=== PATIENT | male | born 1970 | race Caucasian/White ===

== ENCOUNTER 2022-10-19 13:15 | Inpatient (IN) | payer OTHER ==
[2022-10-19 15:41] VITALS: BMI 23.6
[2022-10-19] MEDS ORDERED: MAGNESIUM HYDROX 2400MG/30ML ORAL SUSPENSION 30 ML CUP PO PRN (19:00)
[2022-10-19] MEDS ORDERED: NALOXONE HCL (KLOXXADO) 8 MG SPRAY NS PRN (19:00)
[2022-10-19] MEDS ORDERED: hydrOXYzine PAMOATE 25 MG CAPSULE (FP) PO PRN (19:00)
[2022-10-19] MEDS ORDERED: POLYETHYLENE GLYCOL (HEALTHYLAX) 3350 17 GM PACKET PO PRN (19:00)
[2022-10-19] MEDS ORDERED: NALOXONE HCL 0.4 MG/ML VIAL IM PRN (19:00)
[2022-10-19] MEDS ORDERED: IBUPROFEN 400 MG TABLET (FP) PO PRN (19:00)
[2022-10-19] MEDS ORDERED: BENZOCAINE/MENTHOL (CHLORASEPTIC ) LOZENGE MM PRN (19:00)
[2022-10-19] MEDS ORDERED: LOPERAMIDE HCL 2 MG CAPSULE PO PRN (19:00)
[2022-10-19] MEDS ORDERED: NICOTINE POLACRILEX 2 MG GUM BUC PRN (19:00)
[2022-10-19] MEDS ORDERED: IBUPROFEN 600 MG TABLET (FP) PO PRN (19:00)
[2022-10-19] MEDS ORDERED: BENZONATATE 200 MG CAPSULE PO PRN (19:00)
[2022-10-19] MEDS ORDERED: AMMONIUM LACTATE 12% LOTION 225 GM BOTTLE TP PRN (19:00)
[2022-10-19] MEDS ORDERED: MAG HYDROX/AL HYDROX/SIMETH 30 ML UNIT-DOSE CUP PO PRN (19:00)
[2022-10-19] MEDS ORDERED: ACETAMINOPHEN 325 MG TABLET (FP) PO PRN (19:00)
[2022-10-19] MEDS ORDERED: guaiFENesin 600 MG TABLET.ER (FP) PO PRN (19:00)
[2022-10-19] MEDS ORDERED: TUBERCULIN PPD 5 TU/0.1ML SYRINGE (IN PATIENT USE ONLY) ID ONE (20:00)
[2022-10-19] MEDS: THIAMINE HCL 100 MG TABLET (FP) PO SCH (21:53)
[2022-10-19] MEDS: MELATONIN 5 MG TABLETS PO SCH (21:53)
[2022-10-19] MEDS ORDERED: QUEtiapine FUMARATE 100 MG TABLET (FP) PO ONE (22:00)
[2022-10-19] MEDS: LIDOCAINE PATCH REMOVAL MC SCH (22:03)
[2022-10-19 23:01] LABS: EPI CELLS 11 /uL (0-25.1); HYALINE CASTS 3 /uL (0-3.1); URINE APPEARANCE CLEAR; URINE BACTERIA 32 /uL (0-1359); URINE BILIRUBIN NEGATIVE (NEGATIVE); URINE COLOR DK YELLOW; URINE GLUCOSE (UA) NEGATIVE (NEGATIVE); URINE KETONE NEGATIVE (NEGATIVE); URINE LEUK ESTERASE NEGATIVE (NEGATIVE); URINE NITRITE NEGATIVE (NEGATIVE); URINE PROTEIN 1+ (NEGATIVE); URINE RBC 9 /uL (0-23.9); URINE WBC 38 /uL (0-25.8)
[2022-10-20] MEDS ORDERED: methaDONE HCL 10 MG TABLET PO ONE (10:00)
[2022-10-20] MEDS: PRENATAL VITAMINS W/ FOLIC ACID TABLET (FP) PO SCH (10:18)
[2022-10-20] MEDS ORDERED: methaDONE 40 MG, methaDONE 20 MG PO ONE (10:22)
[2022-10-20] MEDS: LIDOCAINE 5% TOPICAL PATCH TP SCH (10:22)
[2022-10-20 12:55] LABS: POTASSIUM 4.2 mmol/L (3.5-5.1)
[2022-10-20 13:03] LABS: ALBUMIN 3.4 g/dl (3.4-5.0); BLOOD UREA NITROGEN 16.6 mg/dL (7-18)
[2022-10-20 13:08] LABS: BILIRUBIN,TOTAL 0.6 mg/dL (0.2-1); TOT PROT 7.8 g/dl (6.4-8.2)
[2022-10-20 13:11] LABS: HEMATOCRIT 33.3 % (35.4-49); HEMOGLOBIN 11.7 GM/dL (11.7-16.9); MCH 31.9 pg (25.7-33.7); MEAN CELL VOLUME 91.2 fl (80-96); MEAN PLT VOLUME 6.8 fl (7.5-11.1); PLATELET COUNT 380 10^3/uL (134-434); RBC 3.65 M/mm3 (4.00-5.60); RDW 15.3 % (11.9-15.9); WHITE BLOOD COUNT 6.4 K/mm3 (4.0-10.0)
[2022-10-20] MEDS: metFORMIN HCL 500 MG TABLET (FP) PO SCH (16:53)
[2022-10-20] MEDS: NICOTINE 14 MG/24 HOURS TOPICAL PATCH TD PRN (17:53)
[2022-10-20] MEDS: QUEtiapine FUMARATE 100 MG TABLET (FP) PO SCH (21:22)
[2022-10-20] MEDS: THIAMINE HCL 100 MG TABLET (FP) PO SCH (21:22)
[2022-10-20] MEDS: MELATONIN 5 MG TABLETS PO SCH (21:22)
[2022-10-20] MEDS: LIDOCAINE PATCH REMOVAL MC SCH (21:23)
[2022-10-21] MEDS: metFORMIN HCL 500 MG TABLET (FP) PO SCH (06:33)
[2022-10-21] MEDS ORDERED: methaDONE 40 MG, methaDONE 30 MG PO ONE (10:00)
[2022-10-21] MEDS ORDERED: methaDONE HCL 10 MG TABLET PO ONE (10:00)
[2022-10-21] MEDS: PRENATAL VITAMINS W/ FOLIC ACID TABLET (FP) PO SCH (10:11)
[2022-10-21] MEDS: LIDOCAINE 5% TOPICAL PATCH TP SCH (10:11)
[2022-10-21] MEDS: NICOTINE 14 MG/24 HOURS TOPICAL PATCH TD PRN (10:17)
[2022-10-21] MEDS: ERGOCALCIFEROL (VIT D2) 50,000 UNIT (1.25 MG) CAPSULE PO SCH (10:59)
[2022-10-21] MEDS: ATORVASTATIN CA 20 MG TABLET (FP) PO SCH (21:36)
[2022-10-21] MEDS: THIAMINE HCL 100 MG TABLET (FP) PO SCH (21:36)
[2022-10-21] MEDS: MELATONIN 5 MG TABLETS PO SCH (21:36)
[2022-10-21] MEDS: LIDOCAINE PATCH REMOVAL MC SCH (21:37)
[2022-10-21] MEDS: QUEtiapine FUMARATE 100 MG TABLET (FP) PO SCH (21:37)
[2022-10-22] MEDS ORDERED: LEVOTHYROXINE NA 150 MCG TABLET PO SCH (06:00)
[2022-10-22] MEDS: LEVOTHYROXINE 50 MCG, LEVOTHYROXINE 100 MCG PO SCH (06:22)
[2022-10-22] MEDS: methaDONE HCL 40 MG DISPERSABLE TABLET PO SCH (06:22)
[2022-10-22] MEDS: metFORMIN HCL 500 MG TABLET (FP) PO SCH (06:22)
[2022-10-22] MEDS: LIDOCAINE 5% TOPICAL PATCH TP SCH (10:06)
[2022-10-22] MEDS: PRENATAL VITAMINS W/ FOLIC ACID TABLET (FP) PO SCH (10:07)
[2022-10-22] MEDS: NICOTINE 21 MG/24 HOURS TOPICAL PATCH TD PRN (10:07)
[2022-10-22] MEDS: THIAMINE HCL 100 MG TABLET (FP) PO SCH (21:29)
[2022-10-22] MEDS: ATORVASTATIN CA 20 MG TABLET (FP) PO SCH (21:29)
[2022-10-22] MEDS: QUEtiapine FUMARATE 100 MG TABLET (FP) PO SCH (21:29)
[2022-10-22] MEDS: MELATONIN 5 MG TABLETS PO SCH (21:29)
[2022-10-22] MEDS: LIDOCAINE PATCH REMOVAL MC SCH (21:29)
[2022-10-23] MEDS: methaDONE HCL 40 MG DISPERSABLE TABLET PO SCH (06:18)
[2022-10-23] MEDS: LEVOTHYROXINE 50 MCG, LEVOTHYROXINE 100 MCG PO SCH (06:18)
[2022-10-23] MEDS: metFORMIN HCL 500 MG TABLET (FP) PO SCH (06:18)
[2022-10-23] MEDS: PRENATAL VITAMINS W/ FOLIC ACID TABLET (FP) PO SCH (09:56)
[2022-10-23] MEDS: LIDOCAINE 5% TOPICAL PATCH TP SCH (09:56)
[2022-10-23] MEDS: NICOTINE 21 MG/24 HOURS TOPICAL PATCH TD PRN (09:57)
[2022-10-23] MEDS: MELATONIN 5 MG TABLETS PO SCH (21:17)
[2022-10-23] MEDS: QUEtiapine FUMARATE 100 MG TABLET (FP) PO SCH (21:17)
[2022-10-23] MEDS: THIAMINE HCL 100 MG TABLET (FP) PO SCH (21:17)
[2022-10-23] MEDS: ATORVASTATIN CA 20 MG TABLET (FP) PO SCH (21:17)
[2022-10-23] MEDS: LIDOCAINE PATCH REMOVAL MC SCH (21:18)
[2022-10-24] MEDS: methaDONE HCL 40 MG DISPERSABLE TABLET PO SCH (06:30)
[2022-10-24] MEDS: LEVOTHYROXINE 50 MCG, LEVOTHYROXINE 100 MCG PO SCH (06:30)
[2022-10-24] MEDS: ALBUTEROL SO4 HFA INHALER IH PRN (06:32)
[2022-10-24] MEDS: metFORMIN HCL 500 MG TABLET (FP) PO SCH (06:53)
[2022-10-24] MEDS: PRENATAL VITAMINS W/ FOLIC ACID TABLET (FP) PO SCH (10:00)
[2022-10-24] MEDS: LIDOCAINE 5% TOPICAL PATCH TP SCH (10:00)
[2022-10-24] MEDS: NICOTINE 21 MG/24 HOURS TOPICAL PATCH TD PRN (10:01)
[2022-10-24] MEDS: QUEtiapine FUMARATE 100 MG TABLET (FP) PO SCH (21:25)
[2022-10-24] MEDS: THIAMINE HCL 100 MG TABLET (FP) PO SCH (21:25)
[2022-10-24] MEDS: MELATONIN 5 MG TABLETS PO SCH (21:25)
[2022-10-24] MEDS: LIDOCAINE PATCH REMOVAL MC SCH (21:25)
[2022-10-24] MEDS: ATORVASTATIN CA 20 MG TABLET (FP) PO SCH (21:25)
[2022-10-25] MEDS: methaDONE HCL 40 MG DISPERSABLE TABLET PO SCH (05:48)
[2022-10-25] MEDS: LEVOTHYROXINE 50 MCG, LEVOTHYROXINE 100 MCG PO SCH (05:49)
[2022-10-25] MEDS: metFORMIN HCL 500 MG TABLET (FP) PO SCH (06:03)
[2022-10-25] MEDS: ALBUTEROL SO4 HFA INHALER IH PRN ×2 (07:58→21:15)
[2022-10-25] MEDS: PRENATAL VITAMINS W/ FOLIC ACID TABLET (FP) PO SCH (09:50)
[2022-10-25] MEDS: LIDOCAINE 5% TOPICAL PATCH TP SCH (09:50)
[2022-10-25] MEDS: NICOTINE 21 MG/24 HOURS TOPICAL PATCH TD PRN (09:51)
[2022-10-25 13:21] LABS: HIV INTERPRETATION NEGATIVE (NEGATIVE)
[2022-10-25] MEDS: LIDOCAINE PATCH REMOVAL MC SCH (21:15)
[2022-10-25] MEDS: QUEtiapine FUMARATE 100 MG TABLET (FP) PO SCH (21:15)
[2022-10-25] MEDS: ATORVASTATIN CA 20 MG TABLET (FP) PO SCH (21:15)
[2022-10-25] MEDS: THIAMINE HCL 100 MG TABLET (FP) PO SCH (21:15)
[2022-10-25] MEDS: MELATONIN 5 MG TABLETS PO SCH (21:15)
[2022-10-26] MEDS: methaDONE HCL 40 MG DISPERSABLE TABLET PO SCH (06:15)
[2022-10-26] MEDS: LEVOTHYROXINE 50 MCG, LEVOTHYROXINE 100 MCG PO SCH (06:15)
[2022-10-26] MEDS: metFORMIN HCL 500 MG TABLET (FP) PO SCH (06:17)
[2022-10-26] MEDS: PRENATAL VITAMINS W/ FOLIC ACID TABLET (FP) PO SCH (10:05)
[2022-10-26] MEDS: LIDOCAINE 5% TOPICAL PATCH TP SCH (10:05)
[2022-10-26] MEDS: NICOTINE 21 MG/24 HOURS TOPICAL PATCH TD PRN (10:06)
[2022-10-26] MEDS: THIAMINE HCL 100 MG TABLET (FP) PO SCH (21:21)
[2022-10-26] MEDS: QUEtiapine FUMARATE 100 MG TABLET (FP) PO SCH (21:21)
[2022-10-26] MEDS: MELATONIN 5 MG TABLETS PO SCH (21:21)
[2022-10-26] MEDS: ATORVASTATIN CA 20 MG TABLET (FP) PO SCH (21:21)
[2022-10-26] MEDS: LIDOCAINE PATCH REMOVAL MC SCH (21:21)
[2022-10-27] MEDS: LEVOTHYROXINE 50 MCG, LEVOTHYROXINE 100 MCG PO SCH (06:16)
[2022-10-27] MEDS: metFORMIN HCL 500 MG TABLET (FP) PO SCH (06:16)
[2022-10-27] MEDS: methaDONE HCL 40 MG DISPERSABLE TABLET PO SCH (06:16)
[2022-10-27] MEDS: LIDOCAINE 5% TOPICAL PATCH TP SCH (09:59)
[2022-10-27] MEDS: PRENATAL VITAMINS W/ FOLIC ACID TABLET (FP) PO SCH (09:59)
[2022-10-27] MEDS: NICOTINE 21 MG/24 HOURS TOPICAL PATCH TD PRN (10:00)
[2022-10-27] MEDS: ALBUTEROL SO4 HFA INHALER IH PRN ×2 (10:01→21:10)
[2022-10-27] MEDS: MELATONIN 5 MG TABLETS PO SCH (21:10)
[2022-10-27] MEDS: THIAMINE HCL 100 MG TABLET (FP) PO SCH (21:10)
[2022-10-27] MEDS: ATORVASTATIN CA 20 MG TABLET (FP) PO SCH (21:10)
[2022-10-27] MEDS: QUEtiapine FUMARATE 100 MG TABLET (FP) PO SCH (21:11)
[2022-10-27] MEDS: LIDOCAINE PATCH REMOVAL MC SCH (21:40)
[2022-10-28] MEDS: metFORMIN HCL 500 MG TABLET (FP) PO SCH (06:09)
[2022-10-28] MEDS: methaDONE HCL 40 MG DISPERSABLE TABLET PO SCH (06:09)
[2022-10-28] MEDS: LEVOTHYROXINE 50 MCG, LEVOTHYROXINE 100 MCG PO SCH (06:09)
[2022-10-28] MEDS: PRENATAL VITAMINS W/ FOLIC ACID TABLET (FP) PO SCH (10:26)
[2022-10-28] MEDS: LIDOCAINE 5% TOPICAL PATCH TP SCH (10:26)
[2022-10-28] MEDS: ALBUTEROL SO4 HFA INHALER IH PRN (10:27)
[2022-10-28] MEDS: NICOTINE 21 MG/24 HOURS TOPICAL PATCH TD PRN (10:27)
[2022-10-28] MEDS: LIDOCAINE PATCH REMOVAL MC SCH (21:41)
[2022-10-28] MEDS: MELATONIN 5 MG TABLETS PO SCH (21:41)
[2022-10-28] MEDS: ATORVASTATIN CA 20 MG TABLET (FP) PO SCH (21:42)
[2022-10-28] MEDS: THIAMINE HCL 100 MG TABLET (FP) PO SCH (21:42)
[2022-10-28] MEDS: QUEtiapine FUMARATE 100 MG TABLET (FP) PO SCH (21:42)
[2022-10-29] MEDS: methaDONE HCL 40 MG DISPERSABLE TABLET PO SCH (06:17)
[2022-10-29] MEDS: LEVOTHYROXINE 50 MCG, LEVOTHYROXINE 100 MCG PO SCH (06:18)
[2022-10-29] MEDS: metFORMIN HCL 500 MG TABLET (FP) PO SCH (06:19)
[2022-10-29] MEDS: PRENATAL VITAMINS W/ FOLIC ACID TABLET (FP) PO SCH (10:15)
[2022-10-29] MEDS: NICOTINE 21 MG/24 HOURS TOPICAL PATCH TD PRN (10:16)
[2022-10-29] MEDS: ALBUTEROL SO4 HFA INHALER IH PRN ×2 (10:16→21:39)
[2022-10-29] MEDS: LIDOCAINE 5% TOPICAL PATCH TP SCH (10:16)
[2022-10-29] MEDS: MELATONIN 5 MG TABLETS PO SCH (21:39)
[2022-10-29] MEDS: ATORVASTATIN CA 20 MG TABLET (FP) PO SCH (21:39)
[2022-10-29] MEDS: QUEtiapine FUMARATE 100 MG TABLET (FP) PO SCH (21:39)
[2022-10-29] MEDS: THIAMINE HCL 100 MG TABLET (FP) PO SCH (21:39)
[2022-10-29] MEDS: LIDOCAINE PATCH REMOVAL MC SCH (21:39)
[2022-10-30] MEDS: metFORMIN HCL 500 MG TABLET (FP) PO SCH (06:24)
[2022-10-30] MEDS: methaDONE HCL 40 MG DISPERSABLE TABLET PO SCH (06:24)
[2022-10-30] MEDS: LEVOTHYROXINE 50 MCG, LEVOTHYROXINE 100 MCG PO SCH (06:25)
[2022-10-30] MEDS: LIDOCAINE 5% TOPICAL PATCH TP SCH (10:05)
[2022-10-30] MEDS: PRENATAL VITAMINS W/ FOLIC ACID TABLET (FP) PO SCH (10:05)
[2022-10-30] MEDS: NICOTINE 21 MG/24 HOURS TOPICAL PATCH TD PRN (10:05)
[2022-10-30] MEDS: ALBUTEROL SO4 HFA INHALER IH PRN ×2 (10:06→21:27)
[2022-10-30] MEDS: MELATONIN 5 MG TABLETS PO SCH (21:27)
[2022-10-30] MEDS: QUEtiapine FUMARATE 100 MG TABLET (FP) PO SCH (21:27)
[2022-10-30] MEDS: ATORVASTATIN CA 20 MG TABLET (FP) PO SCH (21:27)
[2022-10-30] MEDS: THIAMINE HCL 100 MG TABLET (FP) PO SCH (21:27)
[2022-10-30] MEDS: LIDOCAINE PATCH REMOVAL MC SCH (21:44)
[2022-10-31] MEDS: methaDONE HCL 40 MG DISPERSABLE TABLET PO SCH (06:08)
[2022-10-31] MEDS: LEVOTHYROXINE 50 MCG, LEVOTHYROXINE 100 MCG PO SCH (06:08)
[2022-10-31] MEDS: metFORMIN HCL 500 MG TABLET (FP) PO SCH (06:09)
[2022-10-31] MEDS: PRENATAL VITAMINS W/ FOLIC ACID TABLET (FP) PO SCH (10:25)
[2022-10-31] MEDS: LIDOCAINE 5% TOPICAL PATCH TP SCH (10:25)
[2022-10-31] MEDS: NICOTINE 21 MG/24 HOURS TOPICAL PATCH TD PRN (10:28)
[2022-10-31] MEDS: THIAMINE HCL 100 MG TABLET (FP) PO SCH (21:31)
[2022-10-31] MEDS: ATORVASTATIN CA 20 MG TABLET (FP) PO SCH (21:31)
[2022-10-31] MEDS: ALBUTEROL SO4 HFA INHALER IH PRN (21:31)
[2022-10-31] MEDS: QUEtiapine FUMARATE 100 MG TABLET (FP) PO SCH (21:31)
[2022-10-31] MEDS: MELATONIN 5 MG TABLETS PO SCH (21:32)
[2022-10-31] MEDS: LIDOCAINE PATCH REMOVAL MC SCH (21:32)
[2022-11-01] MEDS: LEVOTHYROXINE 50 MCG, LEVOTHYROXINE 100 MCG PO SCH (06:24)
[2022-11-01] MEDS: methaDONE HCL 40 MG DISPERSABLE TABLET PO SCH (06:24)
[2022-11-01] MEDS: metFORMIN HCL 500 MG TABLET (FP) PO SCH (06:26)
[2022-11-01] MEDS: PRENATAL VITAMINS W/ FOLIC ACID TABLET (FP) PO SCH (09:54)
[2022-11-01] MEDS: NICOTINE 21 MG/24 HOURS TOPICAL PATCH TD PRN (09:54)
[2022-11-01] MEDS: LIDOCAINE 5% TOPICAL PATCH TP SCH (09:54)
[2022-11-01] MEDS: ALBUTEROL SO4 HFA INHALER IH PRN (09:55)
[2022-11-01] MEDS: LIDOCAINE PATCH REMOVAL MC SCH (21:30)
[2022-11-01] MEDS: THIAMINE HCL 100 MG TABLET (FP) PO SCH (21:30)
[2022-11-01] MEDS: ATORVASTATIN CA 20 MG TABLET (FP) PO SCH (21:30)
[2022-11-01] MEDS: MELATONIN 5 MG TABLETS PO SCH (21:31)
[2022-11-01] MEDS: QUEtiapine FUMARATE 100 MG TABLET (FP) PO SCH (21:31)
[2022-11-02] MEDS: LEVOTHYROXINE 50 MCG, LEVOTHYROXINE 100 MCG PO SCH (06:10)
[2022-11-02] MEDS: methaDONE HCL 40 MG DISPERSABLE TABLET PO SCH (06:11)
[2022-11-02] MEDS: PRENATAL VITAMINS W/ FOLIC ACID TABLET (FP) PO SCH (09:50)
[2022-11-02] MEDS: LIDOCAINE 5% TOPICAL PATCH TP SCH (09:51)
[2022-11-02] MEDS: metFORMIN HCL 500 MG TABLET (FP) PO SCH (10:15)
[2022-11-02] MEDS: COLLOIDAL OATMEAL 1 BAR EACH TP PRN (11:58)
[2022-11-02] MEDS: ALBUTEROL SO4 HFA INHALER IH PRN (21:28)
[2022-11-02] MEDS: THIAMINE HCL 100 MG TABLET (FP) PO SCH (21:28)
[2022-11-02] MEDS: QUEtiapine FUMARATE 100 MG TABLET (FP) PO SCH (21:28)
[2022-11-02] MEDS: ATORVASTATIN CA 20 MG TABLET (FP) PO SCH (21:28)
[2022-11-02] MEDS: MELATONIN 5 MG TABLETS PO SCH (21:28)
[2022-11-02] MEDS: LIDOCAINE PATCH REMOVAL MC SCH (21:53)
[2022-11-03] MEDS: LEVOTHYROXINE 50 MCG, LEVOTHYROXINE 100 MCG PO SCH (06:01)
[2022-11-03] MEDS: methaDONE HCL 40 MG DISPERSABLE TABLET PO SCH (06:01)
[2022-11-03] MEDS: metFORMIN HCL 500 MG TABLET (FP) PO SCH (06:37)
[2022-11-03] MEDS: LIDOCAINE 5% TOPICAL PATCH TP SCH (09:51)
[2022-11-03] MEDS: PRENATAL VITAMINS W/ FOLIC ACID TABLET (FP) PO SCH (09:51)
[2022-11-03] MEDS: NICOTINE 21 MG/24 HOURS TOPICAL PATCH TD PRN (09:51)
[2022-11-03] MEDS: QUEtiapine FUMARATE 100 MG TABLET (FP) PO SCH (21:27)
[2022-11-03] MEDS: ALBUTEROL SO4 HFA INHALER IH PRN (21:27)
[2022-11-03] MEDS: LIDOCAINE PATCH REMOVAL MC SCH (21:27)
[2022-11-03] MEDS: MELATONIN 5 MG TABLETS PO SCH (21:27)
[2022-11-03] MEDS: THIAMINE HCL 100 MG TABLET (FP) PO SCH (21:27)
[2022-11-03] MEDS: ATORVASTATIN CA 20 MG TABLET (FP) PO SCH (21:28)
[2022-11-04] MEDS: metFORMIN HCL 500 MG TABLET (FP) PO SCH (06:31)
[2022-11-04] MEDS: LEVOTHYROXINE 50 MCG, LEVOTHYROXINE 100 MCG PO SCH (06:31)
[2022-11-04] MEDS: methaDONE HCL 40 MG DISPERSABLE TABLET PO SCH (06:31)
[2022-11-04] MEDS: ERGOCALCIFEROL (VIT D2) 50,000 UNIT (1.25 MG) CAPSULE PO SCH (07:21)
[2022-11-04] MEDS: NICOTINE 21 MG/24 HOURS TOPICAL PATCH TD PRN (10:08)
[2022-11-04] MEDS: PRENATAL VITAMINS W/ FOLIC ACID TABLET (FP) PO SCH (10:08)
[2022-11-04] MEDS: LIDOCAINE 5% TOPICAL PATCH TP SCH (10:08)
[2022-11-04] MEDS: ATORVASTATIN CA 20 MG TABLET (FP) PO SCH (21:22)
[2022-11-04] MEDS: LIDOCAINE PATCH REMOVAL MC SCH (21:22)
[2022-11-04] MEDS: MELATONIN 5 MG TABLETS PO SCH (21:22)
[2022-11-04] MEDS: THIAMINE HCL 100 MG TABLET (FP) PO SCH (21:22)
[2022-11-04] MEDS: QUEtiapine FUMARATE 100 MG TABLET (FP) PO SCH (21:22)
[2022-11-05] MEDS: methaDONE HCL 40 MG DISPERSABLE TABLET PO SCH (06:14)
[2022-11-05] MEDS: metFORMIN HCL 500 MG TABLET (FP) PO SCH (06:14)
[2022-11-05] MEDS: LEVOTHYROXINE 50 MCG, LEVOTHYROXINE 100 MCG PO SCH (06:15)
[2022-11-05] MEDS: NICOTINE 21 MG/24 HOURS TOPICAL PATCH TD PRN (10:05)
[2022-11-05] MEDS: LIDOCAINE 5% TOPICAL PATCH TP SCH (10:05)
[2022-11-05] MEDS: PRENATAL VITAMINS W/ FOLIC ACID TABLET (FP) PO SCH (10:06)
[2022-11-05] MEDS: ATORVASTATIN CA 20 MG TABLET (FP) PO SCH (21:35)
[2022-11-05] MEDS: QUEtiapine FUMARATE 100 MG TABLET (FP) PO SCH (21:35)
[2022-11-05] MEDS: MELATONIN 5 MG TABLETS PO SCH (21:35)
[2022-11-05] MEDS: THIAMINE HCL 100 MG TABLET (FP) PO SCH (21:35)
[2022-11-05] MEDS: LIDOCAINE PATCH REMOVAL MC SCH (21:35)
[2022-11-06] MEDS: methaDONE HCL 40 MG DISPERSABLE TABLET PO SCH (05:53)
[2022-11-06] MEDS: LEVOTHYROXINE 50 MCG, LEVOTHYROXINE 100 MCG PO SCH (05:54)
[2022-11-06] MEDS: metFORMIN HCL 500 MG TABLET (FP) PO SCH (07:03)
[2022-11-06] MEDS: PRENATAL VITAMINS W/ FOLIC ACID TABLET (FP) PO SCH (10:03)
[2022-11-06] MEDS: LIDOCAINE 5% TOPICAL PATCH TP SCH (10:03)
[2022-11-06] MEDS: ALBUTEROL SO4 HFA INHALER IH PRN (10:05)
[2022-11-06] MEDS: NICOTINE 21 MG/24 HOURS TOPICAL PATCH TD PRN (10:06)
[2022-11-06] MEDS: THIAMINE HCL 100 MG TABLET (FP) PO SCH (21:45)
[2022-11-06] MEDS: MELATONIN 5 MG TABLETS PO SCH (21:45)
[2022-11-06] MEDS: LIDOCAINE PATCH REMOVAL MC SCH (21:45)
[2022-11-06] MEDS: ATORVASTATIN CA 20 MG TABLET (FP) PO SCH (21:45)
[2022-11-06] MEDS: QUEtiapine FUMARATE 100 MG TABLET (FP) PO SCH (21:45)
[2022-11-07] MEDS: LEVOTHYROXINE 50 MCG, LEVOTHYROXINE 100 MCG PO SCH (05:57)
[2022-11-07] MEDS: methaDONE HCL 40 MG DISPERSABLE TABLET PO SCH (05:57)
[2022-11-07] MEDS: metFORMIN HCL 500 MG TABLET (FP) PO SCH (06:00)
[2022-11-07] MEDS: NICOTINE 21 MG/24 HOURS TOPICAL PATCH TD PRN (10:03)
[2022-11-07] MEDS: PRENATAL VITAMINS W/ FOLIC ACID TABLET (FP) PO SCH (10:03)
[2022-11-07] MEDS: LIDOCAINE 5% TOPICAL PATCH TP SCH (10:03)
[2022-11-07] MEDS: ALBUTEROL SO4 HFA INHALER IH PRN ×2 (10:04→21:55)
[2022-11-07] MEDS: LIDOCAINE PATCH REMOVAL MC SCH (21:55)
[2022-11-07] MEDS: ATORVASTATIN CA 20 MG TABLET (FP) PO SCH (21:55)
[2022-11-07] MEDS: THIAMINE HCL 100 MG TABLET (FP) PO SCH (21:55)
[2022-11-07] MEDS: QUEtiapine FUMARATE 100 MG TABLET (FP) PO SCH (21:55)
[2022-11-07] MEDS: MELATONIN 5 MG TABLETS PO SCH (21:55)
[2022-11-08] MEDS: metFORMIN HCL 500 MG TABLET (FP) PO SCH (06:10)
[2022-11-08] MEDS: LEVOTHYROXINE 50 MCG, LEVOTHYROXINE 100 MCG PO SCH (06:10)
[2022-11-08] MEDS: methaDONE HCL 40 MG DISPERSABLE TABLET PO SCH (06:10)
[2022-11-08] MEDS: NICOTINE 21 MG/24 HOURS TOPICAL PATCH TD PRN (10:09)
[2022-11-08] MEDS: LIDOCAINE 5% TOPICAL PATCH TP SCH (10:09)
[2022-11-08] MEDS: PRENATAL VITAMINS W/ FOLIC ACID TABLET (FP) PO SCH (10:09)
[2022-11-08] MEDS: QUEtiapine FUMARATE 100 MG TABLET (FP) PO SCH (21:46)
[2022-11-08] MEDS: ALBUTEROL SO4 HFA INHALER IH PRN (21:46)
[2022-11-08] MEDS: ATORVASTATIN CA 20 MG TABLET (FP) PO SCH (21:46)
[2022-11-08] MEDS: THIAMINE HCL 100 MG TABLET (FP) PO SCH (21:46)
[2022-11-08] MEDS: MELATONIN 5 MG TABLETS PO SCH (21:46)
[2022-11-08] MEDS: LIDOCAINE PATCH REMOVAL MC SCH (22:07)
[2022-11-09] MEDS: methaDONE HCL 40 MG DISPERSABLE TABLET PO SCH (06:04)
[2022-11-09] MEDS: metFORMIN HCL 500 MG TABLET (FP) PO SCH (06:04)
[2022-11-09] MEDS: LEVOTHYROXINE 50 MCG, LEVOTHYROXINE 100 MCG PO SCH (06:04)
[2022-11-09] MEDS: LIDOCAINE 5% TOPICAL PATCH TP SCH (10:06)
[2022-11-09] MEDS: NICOTINE 21 MG/24 HOURS TOPICAL PATCH TD PRN (10:06)
[2022-11-09] MEDS: PRENATAL VITAMINS W/ FOLIC ACID TABLET (FP) PO SCH (10:06)
[2022-11-09] MEDS: ALBUTEROL SO4 HFA INHALER IH PRN (10:07)
[2022-11-09] MEDS: KETOCONAZOLE 2 % SHAMPOO 120 ML BOTTLE TP SCH (16:04)
[2022-11-09] MEDS: MELATONIN 5 MG TABLETS PO SCH (21:43)
[2022-11-09] MEDS: THIAMINE HCL 100 MG TABLET (FP) PO SCH (21:43)
[2022-11-09] MEDS: QUEtiapine FUMARATE 100 MG TABLET (FP) PO SCH (21:43)
[2022-11-09] MEDS: ATORVASTATIN CA 20 MG TABLET (FP) PO SCH (21:43)
[2022-11-09] MEDS: LIDOCAINE PATCH REMOVAL MC SCH (21:54)
[2022-11-10] MEDS: methaDONE HCL 40 MG DISPERSABLE TABLET PO SCH (06:00)
[2022-11-10] MEDS: LEVOTHYROXINE 50 MCG, LEVOTHYROXINE 100 MCG PO SCH (06:02)
[2022-11-10] MEDS: metFORMIN HCL 500 MG TABLET (FP) PO SCH (06:04)
[2022-11-10] MEDS: PRENATAL VITAMINS W/ FOLIC ACID TABLET (FP) PO SCH (10:14)
[2022-11-10] MEDS: LIDOCAINE 5% TOPICAL PATCH TP SCH (10:14)
[2022-11-10] MEDS: THIAMINE HCL 100 MG TABLET (FP) PO SCH (21:26)
[2022-11-10] MEDS: QUEtiapine FUMARATE 100 MG TABLET (FP) PO SCH (21:26)
[2022-11-10] MEDS: ATORVASTATIN CA 20 MG TABLET (FP) PO SCH (21:26)
[2022-11-10] MEDS: MELATONIN 5 MG TABLETS PO SCH (21:26)
[2022-11-10] MEDS: LIDOCAINE PATCH REMOVAL MC SCH (21:27)
[2022-11-11] MEDS: methaDONE HCL 40 MG DISPERSABLE TABLET PO SCH (05:48)
[2022-11-11] MEDS: LEVOTHYROXINE 50 MCG, LEVOTHYROXINE 100 MCG PO SCH (05:49)
[2022-11-11] MEDS: metFORMIN HCL 500 MG TABLET (FP) PO SCH (07:07)
[2022-11-11] MEDS: NICOTINE 21 MG/24 HOURS TOPICAL PATCH TD PRN (09:53)
[2022-11-11] MEDS: PRENATAL VITAMINS W/ FOLIC ACID TABLET (FP) PO SCH (09:53)
[2022-11-11] MEDS: LIDOCAINE 5% TOPICAL PATCH TP SCH (09:54)
[2022-11-11] MEDS: ALBUTEROL SO4 HFA INHALER IH PRN (09:54)
[2022-11-11] MEDS: QUEtiapine FUMARATE 100 MG TABLET (FP) PO SCH (21:34)
[2022-11-11] MEDS: MELATONIN 5 MG TABLETS PO SCH (21:34)
[2022-11-11] MEDS: ATORVASTATIN CA 20 MG TABLET (FP) PO SCH (21:35)
[2022-11-11] MEDS: LIDOCAINE PATCH REMOVAL MC SCH (21:35)
[2022-11-11] MEDS: THIAMINE HCL 100 MG TABLET (FP) PO SCH (21:35)
[2022-11-12] MEDS: metFORMIN HCL 500 MG TABLET (FP) PO SCH (06:05)
[2022-11-12] MEDS: methaDONE HCL 40 MG DISPERSABLE TABLET PO SCH (06:05)
[2022-11-12] MEDS: LEVOTHYROXINE 50 MCG, LEVOTHYROXINE 100 MCG PO SCH (06:05)
[2022-11-12] MEDS: COLLOIDAL OATMEAL 1 BAR EACH TP PRN (06:46)
[2022-11-12] MEDS: NICOTINE 21 MG/24 HOURS TOPICAL PATCH TD PRN (09:56)
[2022-11-12] MEDS: PRENATAL VITAMINS W/ FOLIC ACID TABLET (FP) PO SCH (09:56)
[2022-11-12] MEDS: LIDOCAINE 5% TOPICAL PATCH TP SCH (09:56)
[2022-11-12] MEDS: KETOCONAZOLE 2 % SHAMPOO 120 ML BOTTLE TP SCH (14:30)
[2022-11-12] MEDS: QUEtiapine FUMARATE 100 MG TABLET (FP) PO SCH (21:39)
[2022-11-12] MEDS: MELATONIN 5 MG TABLETS PO SCH (21:39)
[2022-11-12] MEDS: THIAMINE HCL 100 MG TABLET (FP) PO SCH (21:39)
[2022-11-12] MEDS: ATORVASTATIN CA 20 MG TABLET (FP) PO SCH (21:39)
[2022-11-12] MEDS: LIDOCAINE PATCH REMOVAL MC SCH (21:40)
[2022-11-13] MEDS: methaDONE HCL 40 MG DISPERSABLE TABLET PO SCH (06:58)
[2022-11-13] MEDS: metFORMIN HCL 500 MG TABLET (FP) PO SCH (06:58)
[2022-11-13] MEDS: LEVOTHYROXINE 50 MCG, LEVOTHYROXINE 100 MCG PO SCH (06:58)
[2022-11-13] MEDS: ALBUTEROL SO4 HFA INHALER IH PRN ×2 (10:10→21:33)
[2022-11-13] MEDS: PRENATAL VITAMINS W/ FOLIC ACID TABLET (FP) PO SCH (10:10)
[2022-11-13] MEDS: LIDOCAINE 5% TOPICAL PATCH TP SCH (10:11)
[2022-11-13] MEDS: NICOTINE 21 MG/24 HOURS TOPICAL PATCH TD PRN (10:11)
[2022-11-13] MEDS: THIAMINE HCL 100 MG TABLET (FP) PO SCH (21:33)
[2022-11-13] MEDS: QUEtiapine FUMARATE 100 MG TABLET (FP) PO SCH (21:33)
[2022-11-13] MEDS: ATORVASTATIN CA 20 MG TABLET (FP) PO SCH (21:33)
[2022-11-13] MEDS: MELATONIN 5 MG TABLETS PO SCH (21:34)
[2022-11-13] MEDS: LIDOCAINE PATCH REMOVAL MC SCH (21:34)
[2022-11-14] MEDS: methaDONE HCL 40 MG DISPERSABLE TABLET PO SCH (06:19)
[2022-11-14] MEDS: metFORMIN HCL 500 MG TABLET (FP) PO SCH (06:19)
[2022-11-14] MEDS: LEVOTHYROXINE 50 MCG, LEVOTHYROXINE 100 MCG PO SCH (06:20)
[2022-11-14] MEDS: PRENATAL VITAMINS W/ FOLIC ACID TABLET (FP) PO SCH (09:39)
[2022-11-14] MEDS: LIDOCAINE 5% TOPICAL PATCH TP SCH (09:39)
[2022-11-14] MEDS: NICOTINE 21 MG/24 HOURS TOPICAL PATCH TD PRN (09:39)
[2022-11-14] MEDS: QUEtiapine FUMARATE 100 MG TABLET (FP) PO SCH (21:27)
[2022-11-14] MEDS: THIAMINE HCL 100 MG TABLET (FP) PO SCH (21:27)
[2022-11-14] MEDS: LIDOCAINE PATCH REMOVAL MC SCH (21:27)
[2022-11-14] MEDS: MELATONIN 5 MG TABLETS PO SCH (21:27)
[2022-11-14] MEDS: ALBUTEROL SO4 HFA INHALER IH PRN (21:27)
[2022-11-14] MEDS: ATORVASTATIN CA 20 MG TABLET (FP) PO SCH (21:27)
[2022-11-15] MEDS: methaDONE HCL 40 MG DISPERSABLE TABLET PO SCH (06:52)
[2022-11-15] MEDS: metFORMIN HCL 500 MG TABLET (FP) PO SCH (06:52)
[2022-11-15] MEDS: LEVOTHYROXINE 50 MCG, LEVOTHYROXINE 100 MCG PO SCH (06:52)
[2022-11-15] MEDS: PRENATAL VITAMINS W/ FOLIC ACID TABLET (FP) PO SCH (09:47)
[2022-11-15] MEDS: NICOTINE 21 MG/24 HOURS TOPICAL PATCH TD PRN (09:47)
[2022-11-15] MEDS: ALBUTEROL SO4 HFA INHALER IH PRN (09:47)
[2022-11-15] MEDS: LIDOCAINE 5% TOPICAL PATCH TP SCH (09:48)
[2022-11-15] MEDS: KETOCONAZOLE 2 % SHAMPOO 120 ML BOTTLE TP SCH (13:38)
[2022-11-15] MEDS: MELATONIN 5 MG TABLETS PO SCH (21:25)
[2022-11-15] MEDS: THIAMINE HCL 100 MG TABLET (FP) PO SCH (21:25)
[2022-11-15] MEDS: LIDOCAINE PATCH REMOVAL MC SCH (21:26)
[2022-11-15] MEDS: ATORVASTATIN CA 20 MG TABLET (FP) PO SCH (21:26)
[2022-11-15] MEDS: QUEtiapine FUMARATE 100 MG TABLET (FP) PO SCH (21:26)
[2022-11-16] MEDS: metFORMIN HCL 500 MG TABLET (FP) PO SCH (06:36)
[2022-11-16] MEDS: LEVOTHYROXINE 50 MCG, LEVOTHYROXINE 100 MCG PO SCH (06:36)
[2022-11-16] MEDS: methaDONE HCL 40 MG DISPERSABLE TABLET PO SCH (06:36)
[2022-11-16 07:17] VITALS: BP 102/60; PULSE 71; RESP 16; TEMP 97.3
[2022-11-16] MEDS: PRENATAL VITAMINS W/ FOLIC ACID TABLET (FP) PO SCH (09:39)
[2022-11-16] MEDS: LIDOCAINE 5% TOPICAL PATCH TP SCH (09:40)
== END 2022-11-16 10:27 | disposition home or self-care (01) | DRG 772 ==
LOC: YASAS 13:15 → Y5N 19:15
PROVIDERS: ADMIT Allergy & Immunology; ATTEND Psychiatry & Neurology Pain Medicine
PROC: HZ42ZZZ Group Counseling for Substance Abuse Treatment, Cognitive-Behavioral (ICD-10-PCS; principal; 2022-10-19)
DX: F11.20 Opioid dependence, uncomplicated (principal); F14.20 Cocaine dependence, uncomplicated; F17.210 Nicotine dependence, cigarettes, uncomplicated; F19.24 Other psychoactive substance dependence with psychoactive substance-induced mood disorder; F41.9 Anxiety disorder, unspecified; F32.A Depression, unspecified; E03.9 Hypothyroidism, unspecified; E11.59 Type 2 diabetes mellitus with other circulatory complications; Z79.84 Long term (current) use of oral hypoglycemic drugs; M54.42 Lumbago with sciatica, left side; G89.29 Other chronic pain; B18.2 Chronic viral hepatitis C; Z59.00 Homelessness unspecified
CPT/HCPCS: 36415; 80053; 81003; 82962; 84443; 85027; 86780; 86803; 87389; 87522; 93005; 93010; C9803-CS; U0003; U0005